=== PATIENT | male | born 1990 | race African-American/Black ===

== ENCOUNTER 2018-01-30 19:17 | Emergency (ER) | payer BC ==
[2018-01-30] MEDS ORDERED: Morphine 4 MG/ML VIAL ONE (20:21)
== END 2018-01-30 20:52 | disposition home or self-care (01) ==
LOC: MADERS 19:17
DX: T21.12XA Burn of first degree of abdominal wall, initial encounter (principal); T21.11XA Burn of first degree of chest wall, initial encounter; I10 Essential (primary) hypertension; X11.8XXA Contact with other hot tap-water, initial encounter
CPT/HCPCS: 96372; J2270